=== PATIENT | female | born 1940 | race Caucasian/White ===

== ENCOUNTER → 2016-08-25 | Day surgery (SDC) | payer OTHER, BC ==
[2016-08-22 17:58] VITALS: BMI 23.6
[~2016-08-25] MED LIST: ACETAMINOPHEN 500 MG TABLET (FP) PO PRN; MIDAZOLAM HCL 2 MG/2 ML SINGLE DOSE VIAL ONE; ONDANSETRON 4 MG/2 ML VIAL IVPUSH PRN; ONDANSETRON 4 MG/2 ML VIAL ONE; POVIDONE-IODINE 5% OPHTHALMIC PREP 30 ML SOLUTION ONE; PROPOFOL 20 ML ONE; SODIUM CHLORIDE 0.9% P/F 10 ML VIAL IJ ONE; ceFAZolin SODIUM 1 GM VIAL ONE; oxyCODONE HCL 5 MG TABLET PO PRN
[2016-08-25 21:02] VITALS: BP 114/68; PULSE 76; TEMP 98
--- NOTE | 2016-08-26 14:03 | OP ---
DATE OF OPERATION: 08/25/2016 PREOPERATIVE DIAGNOSIS: Extensive defect, right cheek and right lower lid, involving both eyelid skin and cheek skin, status post Mohs excision of basal cell carcinoma. POSTOPERATIVE DIAGNOSIS: Extensive defect, right cheek and right lower lid, involving both eyelid skin and cheek skin, status post Mohs excision of basal cell carcinoma. PROCEDURE: 1. Debridement and tailoring of defect, right lower lid and right cheek. 2. Myocutaneous flap from the right cheek and rastafarian to the right lower lid, reconstructing the anterior lamella of the right lower lid. 3. Full-thickness skin graft from the right postauricular region to the right cheek and to the inferior edge of the right lower lid with no. 4-0 suture. SURGEON: Jorge Madison MD ANESTHESIA: Local with sedation. COMPLICATONS: None. ESTIMATED BLOOD LOSS: 4-5 mL. OPERATION REPORT: Patient was brought to the operating room, placed on the operating room table. Vital signs monitored by Anesthesia. Tetracaine was placed in both eyes. Patient was given intravenous sedation. A 50/50 mixture of 2% Xylocaine with 1:100,000 epinephrine, 0.5% Marcaine, was then injected in the area of the defect of the entire right cheek, all extending out to the pretragal region of the entire right lower lid for a total of 7-8 mL. Massage was applied for hemostasis. The patient was prepped and draped in the usual sterile fashion exposing the right eye, left eye, and right ear. A double-armed 4-0 silk passed [place] red rubber catheter was passed through the skin and fontenot line of the lateral portion of the right lower lid, and clamped with a hemostat. This was for traction on the eyelid. An incision was made at the superior edge of this defect extending out laterally into the canthus. Then, using a Y-hook, a skin flap with the deep dermal underlying vascular plexus was developed well out toward the pretragal region, allowing advancement of the skin flap/myocutaneous flap toward the right lower lid. The muscle layer was closed with a 5-0 chromic suture, recreating the anterior lamella of the right lower lid, joining the nasal remnant of the skin of the right lower lid. Then, the muscle layer was closed across this entire advancement flap with subcuticular 5-0 chromic sutures and then with running 5-0 plain suture. This left an ovoid defect which involved primarily the cheek. A graft end-plate was placed there and it was marked out with a marking pen. The ear was suture in the pretragal region with 4-0 silk suture. Anesthetic had been administered pretragally in the helix. Two 4-0 silks were used to tie the ear up. The template was then placed on the postauricular reflection, orienting the thin skin toward the eyelid and to the postauricular sides of graft. It was marked, injected with 2% Xylocaine and 1:100,000 epinephrine, harvested with a 15 blade and Polo scissors just in the skin-only plane. Hemostasis was achieved with a [place] needle. The ear was then closed with running locking 3-0 chromic sutures across the entire defect and the helix sutures were removed. The graft was meticulously thinned of all subcutaneous tissue. It was soaked in antibiotic. It was pie-crusted with a no. 11 blade and it was placed with the thinned preauricular tissue, oriented superiorly toward the advanced skin muscle flap and to the myocutaneous flap. The graft was then sutured into position with interrupted 5-0 plain suture, then with running 5-0 plain suture throughout the perimeter of the graft, with no tension on the graft whatsoever, with the lid placed on stretch using the previously placed 4-0 suture. At this point, Bacitracin ointment was placed on the graft and a strip of Telfa was placed over the graft. Two dental rolls were placed on top of the strip of Telfa and these were tied over with 4-0 silk suture. The 4-0 suture was secured to the forehead with Mastisol and Steri-Strips after Bacitracin was placed in the eye. The strip of Telfa, an eye patch and gentle Fluff were then taped over the two dental rolls with the eye closed, using Mastisol and paper tape to put gentle pressure on the graft. Xeroform and gauze were placed behind the ear, and the patient was taken to the recovery room in stable condition. JORGE MADISON M.D. [id number]
== END | disposition home or self-care (01) ==
LOC: FASU 15:55
PROVIDERS: ATTEND Ophthalmology
PROC: 0HB2XZZ Excision of Right Ear Skin, External Approach (ICD-10-PCS; 2016-08-25)
PROC: 0KX10ZZ Transfer Facial Muscle, Open Approach (ICD-10-PCS; 2016-08-25)
PROC: 08UQX7Z Supplement Right Lower Eyelid with Autologous Tissue Substitute, External Approach (ICD-10-PCS; principal; 2016-08-25 18:00)
DX: H02.89 Other specified disorders of eyelid (principal); Z85.828 Personal history of other malignant neoplasm of skin
CPT/HCPCS: 94760